=== PATIENT | female | born 2000 | race Caucasian/White ===

== ENCOUNTER 2021-07-12 08:00 | Outpatient (CLI) | payer OTHER | END 2021-07-12 23:59 | LOC: LAB 08:00 | PROVIDERS: ATTEND Family Medicine | DX: R39.9 Unspecified symptoms and signs involving the genitourinary system (principal) | CPT/HCPCS: 87086; 87181 ==

== ENCOUNTER 2023-06-19 10:15 | Outpatient (CLI) | payer OTHER | END 2023-06-19 10:30 | disposition home or self-care (01) | LOC: LAB.N 10:15 | PROVIDERS: ATTEND Physician Assistant Medical | DX: N39.0 Urinary tract infection, site not specified (principal) | CPT/HCPCS: 87077; 87086; 87181 ==

== ENCOUNTER 2023-10-24 08:00 | Outpatient (CLI) | payer OTHER ==
[2023-10-24 21:06] LABS: CHLAMYDIA TRACHOMATIS DNA NEGATIVE (NEGATIVE); NEISSERIA GONORRHOEAE DNA NEGATIVE (NEGATIVE)
[2023-10-24 21:09] LABS: BACTERIAL VAGINOSIS DNA POSITIVE (NEGATIVE); CANDIDA GLABRATA DNA NEGATIVE (NEGATIVE); CANDIDA GROUP DNA NEGATIVE (NEGATIVE); CANDIDA KRUSEI DNA NEGATIVE (NEGATIVE); TRICHOMONAS VAGINALIS DNA NEGATIVE (NEGATIVE)
== END 2023-10-24 23:59 | disposition home or self-care (01) ==
LOC: LAB.WC 08:00
PROVIDERS: ATTEND Obstetrics & Gynecology
DX: Z11.3 Encounter for screening for infections with a predominantly sexual mode of transmission (principal); N89.8 Other specified noninflammatory disorders of vagina
CPT/HCPCS: 81514; 87491; 87591; 87661

== ENCOUNTER 2023-12-20 02:11 | Emergency (ER) | payer OTHER ==
[2023-12-20 02:21] VITALS: BP 118/82; O2SAT 99
--- NOTE | 2023-12-20 02:30 | ED Physician Documentation ---
History of Present Illness - Stated complaint Stated Complaint: SORE THROAT, FEVER - Chief complaint Chief Complaint: Heent - History obtained from History obtained from: Patient - Additonal information Additional information: 22-year-old woman previously healthy presents with 3 to 4 days of sore throat, fever, no cough, and lymph node swelling in the neck. Denies ear pain, shortness of breath or chest pain. PD PAST MEDICAL HISTORY - Past Medical History Past Medical History: No - Past Surgical History Past Surgical History: No - Present Medications Home Medications: Ambulatory Orders Medication Instructions Recorded Confirmed Amoxicillin 875 mg PO BID #10 tablet 12/20/23 - Allergies Allergies/Adverse Reactions: Allergies Allergy/AdvReac Type Severity Reaction Status Date / Time No Known Drug Allergies Allergy Verified 12/20/23 02:19 - Social History Does the pt smoke?: No Smoking Status: Never smoker PD ED PE NORMAL - Vitals Vital signs reviewed: Yes - General General: Alert and oriented X 3, No acute distress, Well developed/nourished - HEENT HEENT: Atraumatic, PERRL, EOMI, Moist mucous membranes, Pharynx benign, Other (White exudates on the tonsils) - Neck Neck: Supple, no meningeal sign, Other (Bilateral anterior cervical lymphadenopathy) - Cardiac Cardiac: RRR - Respiratory Respiratory: No respiratory distress, Clear bilaterally Results - Vitals Vitals: Vital Signs - 24 hr 12/20/23 02:16 Temperature 36.6 C Heart Rate 96 Respiratory 18 Rate Blood Pressure 118/82 H O2 Saturation 99 Oxygen O2 Source Room air PD Medical Decision Making - ED course ED course: 22-year-old woman presents with fever, sore throat, no cough, bilateral anterior cervical lymphadenopathy. And white exudates on the tonsils. Plan to treat for presumed strep throat. Return precautions given. Plan to follow-up with primary care provider. Departure - Departure Disposition: 01 Home, Self Care Clinical Impression: Strep throat Condition: Stable Instructions: ED Strep Pharyngitis Poss Prescriptions: Amoxicillin 875 mg PO BID #10 tablet Comments: You were seen in the emergency department for strep throat. Meds sent to [facility]. Please follow-up with your primary care provider and return to the emergency department if you have any new or worsening symptoms or other concerns.
[2023-12-20] MEDS: AMOXICILLIN 250 MG CAPSULE PO STA (02:39)
== END 2023-12-20 02:41 | disposition home or self-care (01) ==
LOC: ED 02:11
DX: J02.9 Acute pharyngitis, unspecified (principal)
CPT/HCPCS: 99283; A9270